=== PATIENT | male | born 1980 | race Caucasian/White ===

== ENCOUNTER 2016-11-07 21:18 | Emergency (ER) | payer OTHER ==
--- NOTE | 2016-11-07 21:29 | Emergency Department Record ---
History of Present Illness - General Chief Complaint: Ingestion Stated Complaint: SUICIDE ATTEMPT Time Seen by Provider: 11/07/16 21:28 Source: Patient Mode of Arrival: Ambulatory Limitations: No limitations - History of Present Illness Initial Comments: The patient is here with Police and by EMS due to being depressed and possibly overdosing on his Psych medicines. He is on Risperidol 1 mg BID and states he took 40 tablets about an hour or so ago because he was depressed and was trying to hurt himself. He presently denies any pain or discomfort but states he feels a little lightheaded and weak. According to his bottle he only should have had 10 - 1 mg tablets left in the bottle. The patient does have a hx of depression and possibly schizophrenia but has no hx of suicide attempts. The patient also has a long hx of Meth. abuse. Complaint: Other Onset/Timin -: Minutes(s) Radiation: Other Severity: Mild Quality: Other Consistency: Other Improves With: Other Worsens With: Other Context: Other Associated Symptoms: Denies other symptoms - Related Data Home Medications Medication Instructions Recorded Confirmed Last Taken Risperidone [Risperadol] 1 mg PO BID 11/07/16 11/07/16 11/07/16 Allergies Allergy/AdvReac Type Severity Reaction Status Date / Time No Known Drug Allergies Allergy Verified 11/07/16 21:26 Travel Screening - Travel/Exposure Within Last 30 Days Have you traveled within the last 30 days?: No - Travel/Exposure Within Last Year Have you traveled outside the [place] in the last year?: No - Additonal Travel Details Have you been exposed to anyone with a communicable illness?: No - Travel Symptoms Symptom Screening: None Review of Systems Constitutional: Denies: Chills, Fever Eyes: Denies: Eye discharge ENT: Denies: Congestion Respiratory: Denies: Cough, Dyspnea Cardiovascular: Denies: Chest pain Past Medical History - SOCIAL HISTORY Smoking Status: Current every day smoker Alcohol Use Comment: denies Drug Use Detail:: Methamphetamine - RESPIRATORY Hx Respiratory Disorders: No - CARDIOVASCULAR Hx Cardio Disorders: No - NEURO Hx Neuro Disorders: No - GI Hx GI Disorders: No - Hx Genitourinary Disorders: No - ENDOCRINE Hx Endocrine Disorders: No - MUSCULOSKELETAL Hx Musculoskeletal Disorders: No - PSYCH Hx Psych Problems: Yes Hx Depression: Yes - HEMATOLOGY/ONCOLOGY Hx Hematology/Oncology Disorders: No Family Medical History Any Significant Family History?: No Physical Exam - General General Appearance: Alert, Oriented x3, Cooperative, No acute distress - Head Head exam: Atraumatic, Normocephalic, Normal inspection - Eye Eye exam: Normal appearance, PERRL, Conjunctival injection (chronic due to tattooing.), EOMI - ENT Throat exam: Normal inspection. negative: Tonsillar erythema, Tonsillar exudate - Neck Neck exam: Normal inspection, Full ROM. negative: Tenderness - Respiratory Respiratory exam: Normal lung sounds bilaterally. negative: Respiratory distress - Cardiovascular Cardiovascular Exam: Regular rate, Normal rhythm, Normal heart sounds - GI/Abdominal GI/Abdominal exam: Soft, Normal bowel sounds. negative: Tenderness - Extremities Extremities exam: Normal inspection, Full ROM, Normal capillary refill. negative: Tenderness - Neurological Neurological exam: Alert, Oriented X3. negative: Altered, Motor sensory deficit - Psychiatric Psychiatric exam: Depressed, Flat affect, Suicidal ideation. negative: Agitated , Anxious, Homicidal ideation - Skin Skin exam: negative: Rash Course Vital Signs 11/07/16 21:18 Temperature 97.7 F Pulse Rate 86 Respiratory 16 Rate Blood Pressure 95/50 Pulse Ox 92 L - Reevaluation(s) Reevaluation #1: The patient is doing very well at this time. He is resting comfortably with an improved HR and BP. He is feeling better but is still depressed. I did contact Poison Control and they stated the overdose should be non life threatening. They recommend fluids and to make sure his vital signs and QTC on his EKG is WNL 's. They also stated the medicine peaks in about 3 hours after ingestion. 11/07/16 22:51 Reevaluation #2: The patient is doing well. He denies any pain or discomfort. He is still feeling depressed but denies any suicidal ideation presently. His vitals are WNL and he is not tachycardic. 11/08/16 00:00 Reevaluation #3: The patient is doing very well at this time. He is up ambulating with no difficulty. His HR is around 80 and 2nd EKG is WNL with no prolonged QT interval. I did discuss the case with the driver at [facility] and they are evaluating him for transfer. 11/08/16 00:53 Reevaluation #4: The patient is feeling better and less dizzy. His speech is clear and he denies any pain or discomfort. The patient is walking around with no difficulty and denies any problems. I did discuss the case with Olaf who is a driver at [facility] in [place] and he accepts the patient to their ES area. The patient is taking fluids with no vomiting and is ambulating on his own with no difficulty. 11/08/16 03:42 11/08/16 03:52 Medical Decision Making - Data Complexity MDM Data: Labs Ordered and/or Reviewed, EKG Ordered and/or Reviewed - Lab Data Result diagrams: 11/07/16 21:35 11/07/16 21:35 - EKG Data -: EKG Interpreted by Me EKG: No Acute Changes (NSR at 92, QTC 492. Neg S-T changes.) Disposition Disposition: Transfer Clinical Impression: Acute drug overdose Qualifiers: Encounter type: initial encounter Injury intent: accidental or unintentional Qualified Code(s): T50.901A - Poisoning by unspecified drugs, medicaments and biological substances, accidental (unintentional), initial encounter Disposition: Home, Self-Care Transfer To: [facility] Reason For Transfer: Psych Accepting Physician: Dr. Wilson Time Discussed w/Accepting Physician: 04:00 Condition: (1) Good Instructions: Methamphetamine Abuse (ED) Additional Instructions: Please proceed to [facility] for further evaluation and possible placement. Forms: Patient Portal Access Time of Disposition: 03:50
[2016-11-07] MEDS ORDERED: 0.9 % SODIUM CHLORIDE 1,000 ML BAG IV ONE ×3 (21:31→23:32)
[2016-11-07 21:46] LABS: BASO % 0.5 % (0-6); EOS % 2.8 % (0-6); GRAN % 71.8 % (47-80); HEMOGLOBIN 13.5 gm/dl (14.0-18.0); LYMPH % 17.2 % (16-45); MEAN CELL VOLUME 92.9 fl (81-97); MEAN CORPUSCULAR HEMOGLOBIN 32.1 pg (27-33); MEAN CORPUSCULAR HGB CONC 34.6 g/dl (32-36); MEAN PLATELET VOLUME 8.7 fl (7.4-10.4); MONO % 7.7 % (0-9); PLATELET COUNT 317 K/uL (130-400); RED CELL DISTRIBUTION WIDTH 12.9 % (11.5-14.5); WHITE BLOOD COUNT W/O DIFF 11.8 K/uL (4.2-12.2)
[2016-11-07 21:57] LABS: ACETAMINOPHEN < 10.0 ug/mL (10.0-30.0); ALB/GLOB RATIO 1.4 (1.1-1.8); ALBUMIN 3.6 gm/dL (3.5-5.0); ALKALINE PHOSPHATASE 75 U/L (38-126); ALT/SGPT 28 U/L (21-72); ANION GAP 8.2 (7-16); AST/SGOT 14 U/L (17-59); BILIRUBIN,TOTAL 0.33 mg/dL (0.2-1.3); BLOOD UREA NITROGEN 12 mg/dL (9-20); CARBON DIOXIDE 21.8 mmol/L (22-30); CREATININE 0.9 mg/dL (0.66-1.25); EST GLOMERULAR FILTRATION RATE > 60 ml/min; GLUCOSE,RANDOM 219 mg/dL (70-110); SALICYLATE < 1.0 mg/dL (2.8-20.0); TOTAL PROTEIN 6.1 gm/dL (6.3-8.2)
[2016-11-07] MEDS ORDERED: POTASSIUM CHLORIDE 20 MEQ TABLET PO ONE ×2 (22:00→23:32)
[2016-11-07 23:37] LABS: BARBITURATE SCREEN URINE NOT DETECTED; TRICYCLIC ANTIDEPRESSANT SCRN NOT DETECTED
[2016-11-07 23:38] LABS: AMPHETAMINE SCREEN URINE DETECTED; BENZODIAZEPINE SCREEN URINE NOT DETECTED; COCAINE SCREEN URINE NOT DETECTED; METHADONE SCREEN URINE NOT DETECTED; METHAMPHETAMINE SCREEN NOT DETECTED; OPIATE SCREEN URINE NOT DETECTED; OXYCODONE SCREEN URINE NOT DETECTED; PHENCYCLIDINE SCREEN URINE NOT DETECTED; PROPOXYPHENE SCREEN URINE NOT DETECTED; THC SCREEN URINE DETECTED
== END 2016-11-08 04:30 | disposition home or self-care (01) ==
LOC: ER 21:18
DX: T43.592A Poisoning by other antipsychotics and neuroleptics, intentional self-harm, initial encounter (principal); R42 Dizziness and giddiness; R53.1 Weakness; F12.10 Cannabis abuse, uncomplicated; F17.210 Nicotine dependence, cigarettes, uncomplicated; F15.10 Other stimulant abuse, uncomplicated; F20.9 Schizophrenia, unspecified; Y92.009 Unspecified place in unspecified non-institutional (private) residence as the place of occurrence of the external cause
CPT/HCPCS: 99285 ×2; 96360; 96361; 85025; 80053; 93005 ×2; 93010 ×2; G0480 ×3; G0477; 80320; 80329; J7030